=== PATIENT | male | born 1995 | race Caucasian/White ===

== ENCOUNTER 2016-06-22 12:39 | Emergency (ER) | payer OTHER ==
[~2016-06-22] VITALS: Ht 167.6 cm; Wt 57.0 kg
[~2016-06-22 12:39] MED LIST: NAPR500 PO
[2016-06-22 12:40] VITALS: BP 121/65; PULSE 105; RESP 16; TEMP 98.1; O2SAT 97
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
[2016-06-22] MEDS ORDERED: TETANUS/DIPHTHERIA TOXOID ADULT 0.5 ML VIAL IM ONE (13:45)
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
== END 2016-06-22 16:44 | disposition home or self-care (01) ==
LOC: NETRI 12:39
DX: S00.83XA Contusion of other part of head, initial encounter (principal); S10.81XA Abrasion of other specified part of neck, initial encounter; S00.81XA Abrasion of other part of head, initial encounter; Z23 Encounter for immunization; S10.83XA Contusion of other specified part of neck, initial encounter; Y04.0XXA Assault by unarmed brawl or fight, initial encounter; Y93.9 Activity, unspecified; Y92.013 Bedroom of single-family (private) house as the place of occurrence of the external cause; Y99.9 Unspecified external cause status
CPT/HCPCS: 70450; 70486; 71111; 72125; 90471; 90714